=== PATIENT | male | born 1945 | race Caucasian/White ===

== ENCOUNTER 2016-09-02 12:45 | Emergency (ER) | payer MEDICARE ==
--- NOTE | 2016-09-02 13:05 | ER Document Report ---
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 horne at [facility]) Doesn 't know if it's infection, recurrence of the fast growing tumor or fluid collection. TRAVEL OUTSIDE OF THE [place] IN LAST 30 DAYS: No - Related Data Allergies/Adverse Reactions: codeine [Codeine] Adverse Reaction (Verified 09/02/16 13:03) Nausea Past Medical History - Past Medical History Cardiac Medical History: Reports: Hx Coronary Artery Disease Denies: Hx Heart Attack, Hx Hypertension Pulmonary Medical History: Denies: Hx Asthma, Hx Bronchitis, Hx COPD, Hx Pneumonia Neurological Medical History: Denies: Hx Cerebrovascular Accident, Hx Seizures Musculoskeltal Medical History: Denies Hx Arthritis Past Surgical History: Reports: Hx Abdominal Surgery - Immunizations Hx Diphtheria, Pertussis, Tetanus Vaccination: No Physical Exam - Vital signs Vitals: Temp Pulse Resp BP Pulse Ox 97.8 F 91 18 153/91 H 95 09/02/16 12:57 09/02/16 12:57 09/02/16 12:57 09/02/16 12:57 09/02/16 12:57 Course - Vital Signs Vital signs: Temp Pulse Resp BP Pulse Ox 97.8 F 91 18 153/91 H 95 09/02/16 12:57 09/02/16 12:57 09/02/16 12:57 09/02/16 12:57 09/02/16 12:57
[2016-09-02 13:44] LABS: ABSOLUTE EOSINOPHILS # (AUTO) 0.1 10^3/uL (0.0-0.6); ABSOLUTE LYMPHOCYTES (AUTO) 1.2 10^3/uL (0.5-4.7); ABSOLUTE MONOCYTES (AUTO) 0.4 10^3/uL (0.1-1.4); ABSOLUTE NEUT (AUTO) 3.8 10^3/uL (1.7-8.2); BASOPHILS % (AUTO) 0.6 % (0-2); EOSINOPHILS % (AUTO) 1.5 % (0-6); HEMATOCRIT 39.4 % (37.9-51.0); HEMOGLOBIN 13.3 g/dL (13.5-17.0); HGB HCT DIFFERENCE 0.5; LYMPHOCYTES % (AUTO) 21.2 % (13-45); MEAN CORPUSCULAR HEMOGLOBIN 28.7 pg (27.0-33.4); MEAN CORPUSCULAR HGB CONC 33.8 g/dL (32.0-36.0); MEAN CORPUSCULAR VOLUME 85 fl (80-97); RED BLOOD COUNT 4.64 10^6/uL (4.35-5.55); RED CELL DISTRIBUTION WIDTH 13.7 % (11.5-14.0); SEGMENTED NEUTROPHILS % (AUTO) 69.7 % (42-78); WHITE BLOOD COUNT 5.5 10^3/uL (4.0-10.5)
[2016-09-02 14:05] LABS: ALANINE AMINOTRANSFERASE 32 U/L (21-72); ALBUMIN 4.1 g/dL (3.5-5.0); ALKALINE PHOSPHATASE 95 U/L (38-126); ANION GAP 9 (5-19); ASPARTATE AMINO TRANSFERASE 26 U/L (17-59); BILIRUBIN,TOTAL 0.8 mg/dL (0.2-1.3); BLOOD UREA NITROGEN 17 mg/dL (7-20); CALCIUM 9.8 mg/dL (8.4-10.2); CARBON DIOXIDE 30 mmol/L (22-30); CHLORIDE 105 mmol/L (98-107); CREATININE RESULT 0.99 mg/dL (0.52-1.25); GLUCOSE 93 mg/dL (75-110); SODIUM 144.2 mmol/L (137-145); TOTAL PROTEIN 6.9 g/dL (6.3-8.2)
--- NOTE | 2016-09-02 15:06 | ER Document Report ---
ED General - General Chief Complaint: Jaw Pain Stated Complaint: LUMP ON LEFT CHEEK/POST SURGERY Mode of Arrival: Ambulatory Information source: Patient Notes: 71-year-old male who has had extensive surgery on the left side of his face anterior to his article presents with complaints of swelling. Patient notes swelling is increase her past 2-3 days denies any fevers or chills nausea vomiting or diarrhea. Patient notes it is tender to palpation TRAVEL OUTSIDE OF THE [place] IN LAST 30 DAYS: No - HPI Onset: Other - 2 three-day duration Onset/Duration: Worse Quality of pain: Achy Severity: Mild Pain Level: 1 Associated symptoms: Other Exacerbated by: Denies Relieved by: Denies Similar symptoms previously: No Recently seen / treated by doctor: No - Related Data Allergies/Adverse Reactions: codeine [Codeine] Adverse Reaction (Verified 09/02/16 13:03) Nausea Past Medical History - General Information source: Patient - Social History Smoking Status: Never Smoker Cigarette use (# per day): No Chew tobacco use (# tins/day): No Smoking Education Provided: No Frequency of alcohol use: None Drug Abuse: None Family History: Reviewed & Not Pertinent Patient has suicidal ideation: No Patient has homicidal ideation: No - Past Medical History Cardiac Medical History: Reports: Hx Coronary Artery Disease Denies: Hx Heart Attack, Hx Hypertension Pulmonary Medical History: Denies: Hx Asthma, Hx Bronchitis, Hx COPD, Hx Pneumonia Neurological Medical History: Denies: Hx Cerebrovascular Accident, Hx Seizures Renal/ Medical History: Denies: Hx Peritoneal Dialysis Musculoskeltal Medical History: Denies Hx Arthritis Past Surgical History: Reports: Hx Abdominal Surgery - Immunizations Hx Diphtheria, Pertussis, Tetanus Vaccination: No Hx Pneumococcal Vaccination: 06/01/12 Review of Systems - Review of Systems Notes: REVIEW OF SYSTEMS: CONSTITUTIONAL : Denies fever, chills, or sweats. Denies recent illness. EENT: Admits to facial swelling CARDIOVASCULAR: Denies chest pain. Denies palpitations or racing or irregular heart beat. Denies ankle edema. RESPIRATORY: Denies cough, cold, or chest congestion. Denies shortness of breath, difficulty breathing, or wheezing. GASTROINTESTINAL: Denies abdominal pain or distention. Denies nausea, vomiting , or diarrhea. Denies blood in vomitus, stools, or per rectum. Denies black, tarry stools. Denies constipation. GENITOURINARY: Denies difficulty urinating, painful urination, burning, frequency, blood in urine, or discharge. MUSCULOSKELETAL: Denies back or neck pain or stiffness. Denies joint pain or swelling. SKIN: Denies rash, lesions or sores. HEMATOLOGIC : Denies easy bruising or bleeding. LYMPHATIC: Denies swollen, enlarged glands. NEUROLOGICAL: Denies confusion or altered mental status. Denies passing out or loss of consciousness. Denies dizziness or lightheadedness. Denies headache. Denies weakness or paralysis or loss of use of either side. Denies problems with gait or speech. Denies sensory loss, numbness, or tingling. Denies seizures. PSYCHIATRIC: Denies anxiety or stress. Denies depression, suicidal ideation, or homicidal ideation. ALL OTHER SYSTEMS REVIEWED AND NEGATIVE. Dictation was performed using [employer] voice recognition software PHYSICAL EXAMINATION: GENERAL: Well-appearing, well-nourished and in no acute distress. HEAD: Left facial paralysis secondary to previous surgery EYES: Pupils equal round and reactive to light, extraocular movements intact, conjunctiva are normal. ENT: Nares patent, oropharynx clear without exudates. Moist mucous membranes. NECK: Normal range of motion, supple without lymphadenopathy LUNGS: Breath sounds clear to auscultation bilaterally and equal. No wheezes rales or rhonchi. HEART: Regular rate and rhythm without murmurs ABDOMEN: Soft, nontender, nondistended abdomen. No guarding, no rebound. No masses appreciated. Female : deferred Musculoskeletal: Normal range of motion, no pitting or edema. No cyanosis. NEUROLOGICAL: Left facial paralysis PSYCH: Normal mood, normal affect. SKIN: 2 x 3 cm circumscribed fluctuant area left posterior jaw Physical Exam - Vital signs Vitals: Temp Pulse Resp BP Pulse Ox 97.8 F 91 18 153/91 H 95 09/02/16 12:57 09/02/16 12:57 09/02/16 12:57 09/02/16 12:57 09/02/16 12:57 Course - Re-evaluation Re-evalutation: 09/02/16 15:24 Given the patient has no white count is afebrile and otherwise has no erythema in the area I do not believe this is infectious in nature however patient will be started on antibiotics and has been given follow with his own surgeon. CT does note a seroma which I believe this is Should return precautions have been provided to both patient and After performing a Medical Screening Examination, I estimate there is LOW risk for OPEN FRACTURE, COMPARTMENT SYNDROME, TENDON RUPTURE, ACUTE NEUROVASCULAR INJURY, or RETAINED FOREIGN BODY, thus I consider the discharge disposition reasonable. Also, there is no evidence or peritonitis, sepsis, or toxicity. The patient and I have discussed the diagnosis and risks, and we agree with discharging home with close follow-up with the understanding that symptoms and presentations can change. We also discussed returning to the Emergency Department immediately if new or worsening symptoms occur. We have discussed the symptoms which are most concerning (e.g., changing or worsening pain, fever , numbness, weakness, cool or painful digits) that necessitate immediate return. - Vital Signs Vital signs: Temp Pulse Resp BP Pulse Ox 97.8 F 91 18 153/91 H 95 09/02/16 12:57 09/02/16 12:57 09/02/16 12:57 09/02/16 12:57 09/02/16 12:57 - Laboratory Result Diagrams: 09/02/16 13:29 09/02/16 13:29 Laboratory results interpreted by me: 09/02/16 13:29 Hgb 13.3 L - Diagnostic Test Radiology reviewed: Image reviewed, Reports reviewed Discharge - Discharge Clinical Impression: Facial swelling Condition: Stable Disposition: HOME, SELF-CARE Instructions: Abscess ([facility]) Additional Instructions: You must see your surgeon on sunday or return immediately if there are fevers or any other concerns Prescriptions: Clindamycin HCl 300 mg PO Q6 #40 capsule Oxycodone HCl/Acetaminophen [Percocet 5-325 mg Tablet] 1 tab PO ASDIR PRN #25 tab PRN Reason: Referrals: CHASIDY DIAZ MD [Primary Care Provider] - Follow up as needed
[2016-09-02 15:26] VITALS: BP 149/91
== END 2016-09-02 15:22 | disposition home or self-care (01) ==
LOC: ER 12:45
DX: R22.0 Localized swelling, mass and lump, head (principal); R68.84 Jaw pain; I25.10 Atherosclerotic heart disease of native coronary artery without angina pectoris; Z88.6 Allergy status to analgesic agent
CPT/HCPCS: 36415; 70487; 80053; 85025; 99284

== ENCOUNTER 2016-11-22 05:26 | Inpatient (IN) | payer MEDICARE ==
--- NOTE | 2016-11-15 20:54 | EKG REPORT ---
SEVERITY:- NORMAL ECG - SINUS RHYTHM : Confirmed by: Lina Jackson MD 15-Nov-2016 20:53:35
[2016-11-16 11:24] LABS: ABSOLUTE EOSINOPHILS # (AUTO) 0.1 10^3/uL (0.0-0.6); ABSOLUTE LYMPHOCYTES (AUTO) 1.3 10^3/uL (0.5-4.7); ABSOLUTE MONOCYTES (AUTO) 0.4 10^3/uL (0.1-1.4); ABSOLUTE NEUT (AUTO) 2.7 10^3/uL (1.7-8.2); BASOPHILS % (AUTO) 0.8 % (0-2); EOSINOPHILS % (AUTO) 2.3 % (0-6); HEMATOCRIT 39.1 % (37.9-51.0); HEMOGLOBIN 13.3 g/dL (13.5-17.0); HGB HCT DIFFERENCE 0.8; LYMPHOCYTES % (AUTO) 28.5 % (13-45); MEAN CORPUSCULAR HEMOGLOBIN 28.9 pg (27.0-33.4); MEAN CORPUSCULAR VOLUME 85 fl (80-97); RED CELL DISTRIBUTION WIDTH 13.4 % (11.5-14.0); SEGMENTED NEUTROPHILS % (AUTO) 60.4 % (42-78); WHITE BLOOD COUNT 4.5 10^3/uL (4.0-10.5)
[2016-11-16 16:28] LABS: APPEARANCE,URINE CLEAR; BILIRUBIN,URINE NEGATIVE (NEGATIVE); GLUCOSE, URINE NEGATIVE (NEGATIVE); KETONES,URINE NEGATIVE (NEGATIVE); LEUKOCYTE ESTERASE,URINE NEGATIVE (NEGATIVE); NITRITE,URINE NEGATIVE (NEGATIVE); PROTEIN,URINE NEGATIVE (NEGATIVE); URINE SPECIFIC GRAVITY 1.028; UROBILINOGEN,URINE NEGATIVE mg/dL (<2.0)
[2016-11-16 16:54] LABS: CALCIUM 9.4 mg/dL (8.4-10.2); GLUCOSE 92 mg/dL (75-110)
[2016-11-16 16:55] LABS: ANION GAP 11 (5-19); BLOOD UREA NITROGEN 21 mg/dL (7-20); CARBON DIOXIDE 27 mmol/L (22-30); CHLORIDE 106 mmol/L (98-107); CREATININE RESULT 0.84 mg/dL (0.52-1.25); POTASSIUM 4.1 mmol/L (3.6-5.0); SODIUM 143.6 mmol/L (137-145)
[~2016-11-22 05:26] MED LIST: CEFAZOLIN 2 GM/D5W RTU 2 GM/50 ML RTUPB IV PRN; LACTATED RINGERS 1000 ML IV PRN; LIDOCAINE 0.5% INJ-PF (5 MG/ML) 50 ML SDV SUBCUT PRN
[2016-11-22] MEDS ORDERED: FENTANYL CITRATE INJ/PF 250 MCG/5 ML AMPULE ONE (06:55)
[2016-11-22] MEDS ORDERED: HYDROMORPHONE HCL INJ/PF 2 MG/ML AMPULE ONE (06:56)
[2016-11-22] MEDS ORDERED: PROPOFOL INJ 200 MG/20 ML VIAL IV ONE (06:56)
[2016-11-22] MEDS ORDERED: MIDAZOLAM 2 MG/2 ML INJ ONE (06:56)
[2016-11-22] MEDS ORDERED: FENTANYL CITRATE INJ/PF 100 MCG/2 ML AMPUL IV PRN ×3 (08:23)
[2016-11-22] MEDS ORDERED: PROMETHAZINE HCL INJ 25 MG/1 ML VIAL IV PRN ×2 (08:23)
[2016-11-22] MEDS ORDERED: MEPERIDINE HCL/PF INJ 25 MG/1 ML DISP.SYRIN IV PRN (08:23)
[2016-11-22] MEDS ORDERED: DIPHENHYDRAMINE HCL 50 MG/ML VIAL IV PRN (08:23)
[2016-11-22] MEDS ORDERED: MORPHINE SULFATE 10 MG/ML INJ IV PRN (08:23)
[2016-11-22] MEDS ORDERED: BACITRACIN INJ 50,000 UNIT VIAL ONE (08:37)
[2016-11-22] MEDS ORDERED: BUPIVACAINE INJ/PF LIPOSOME/PF 266 MG/20 ML SDV ONE (08:37)
[2016-11-22] MEDS ORDERED: METHOCARBAMOL INJ/PF 1000 MG/10 ML SDV IV PRN (09:53)
[2016-11-22] MEDS: FENTANYL CITRATE INJ/PF 100 MCG/2 ML AMPUL ONE ×2 (09:56→10:01)
[2016-11-22] MEDS ORDERED: IBUPROFEN 800 MG TABLET ONE (10:25)
--- NOTE | 2016-11-22 10:42 | OPERATIVE REPORT E ---
Operative Report NAME: JANEL HOYT : 1945 AGE: 71Y DATE OF SURGERY: 11/22/2016 ROOM: OR ATTENDING PHYSICIAN: BRANDON SEALS M.D. DECORATOR INSPECTOR: None. PREOPERATIVE DIAGNOSES: 1. Radiculitis. 2. Back pain. POSTOPERATIVE DIAGNOSES: 1. Chronic back pain. 2. Radiculitis. PROCEDURES: 1. Spinal cord stimulator placement. 2. Partial laminectomy of T10 and T11. 3. Testing of leads and generator placement and testing of generator. ESTIMATED BLOOD LOSS: 100 mL. INDICATIONS: Patient is a 71-year-old male who has failed conservative management as well as had a successful spinal cord stimulator trial, did well after the spinal cord stimulator trial. After discussion with the patient of the risks, indications, and alternatives, including the risk of infection and bleeding, damage to nerves or blood vessels, the risk of dural tear and spinal headaches, the risk of continued back pain, the risk of migration of the leads, any further surgery, infection, and bleeding. The patient understood all these risks and wished to proceed with surgical intervention. OPERATIVE TECHNIQUE: The patient was brought into the room, placed under anesthesia, received 2 g of Ancef within an hour of cut time, had SCDs and a warm blanket. Patient was placed in the prone position on the side table with Jg frame. Jg frame was turned up to open up the anterior space posteriorly. Under C-arm fluoroscopy, the skin is marked at T11 and T10 and T12. After completion of prepping and draping, having received 2 g of Ancef within an hour of cut time, a midline incision was carried down through the skin measuring approximately 1.5 inches. Dissection was carried down onto T11. A partial laminectomy was performed at T10 and T11 and the microscope was brought in. Under the microscope, a partial laminectomy was performed of T10 and T11. Ligamentum flavum was resected, dura was identified, and the paddle lead from the Nevro system is introduced. C-arm fluoroscopy in AP position used to verify passing of that lead. The lead passed all the way up to the top of T9 and extended up into the disk space at T8-T9, was in the midline. After that and proper verification of that, the wires attached to the lead had harness attached to it. Then, a towel clip was used to create a hole inside the remainder of the lamina and spinous process and a 0 Ethibond was passed through, tied around the harness, and locked into position and final tightened and locked down. Position was verified again with C-arm fluoroscopy. Then, the wound was irrigated with copious amounts of irrigation. Bipolar electrocautery was used to coagulate small little bleeders and then attention was paid to placement of the generator pocket on the right side through the patient's request in the flank and then sharp dissection was carried down in that area and then a pocket was created above the fascia and bleeders were coagulated with electrocautery, and then the wound was irrigated with a significant amount of bacitracin irrigation. After that, the tunneling device was then used to pass the wire from the laminectomy site all the way up to the generator site, and then the wound and laminectomy site was irrigated with a liter of bacitracin irrigation and then the fascia was reapproximated with 0 Vicryl, subcu with 2-0 Vicryl, and skin with subcutaneous 3-0 Monocryl closure. Then, the actual Nevro generator is placed into the pocket and connected to the wires and tested, found to have good contact, and then the subcu was reapproximated with 0 and 2-0 Vicryl and then a running subcuticular closure with 3-0 Monocryl. Wounds were dressed in benzoin, Steri-Strips, 4 x 4, and tape. Patient tolerated the procedure well. Patient was then brought to the supine position and extubated and brought to recovery room. Condition is stable. Disposition is to recovery room. DICTATING PHYSICIAN: BRANDON SEALS M.D. [id number] PHY#: [id number] ID: [id number] JOB#: [id number] ACCT: [id number] cc:BRANDON SEALS M.D. >
[2016-11-22] MEDS ORDERED: OXYCODONE HCL IR 5 MG TABLET ONE (10:53)
--- NOTE | 2016-11-22 10:53 | RADIOLOGY REPORT (SQ) ---
EXAM DESCRIPTION: NO CHG FLUORO; T SPINE AP/LAT COMPLETED DATE/TIME: 11/22/2016 10:09 am REASON FOR STUDY: SPINAL STIMULATOR ASSISTED WITH FLUORO IN OR M51.16 INTERVERTEBRAL DISC DISORDERS W RADICULOPATHY, LUMBAR COMPARISON: None. FLUOROSCOPY TIME: 0.3 minutes. 5 images saved to PACS. TECHNIQUE: Intra-operative images acquired during surgical procedure to evaluate progress. NUMBER OF IMAGES: 5 images. LIMITATIONS: None. FINDINGS: Images acquired during electrode placement. IMPRESSION: IMAGE(S) OBTAINED DURING PROCEDURE. COMMENT: Quality ID [id number]: Final reports for procedures using fluoroscopy that document radiation exp osure indices, or exposure time and number of fluorographic images (if radiation exposure indices are not available) Please consult full operative report of the attending physician for description of the procedure. TECHNICAL DOCUMENTATION: JOB ID: [id number] [employer]- All Rights Reserved
--- NOTE | 2016-11-22 10:53 | RADIOLOGY REPORT (SQ) ---
EXAM DESCRIPTION: NO CHG FLUORO; T SPINE AP/LAT COMPLETED DATE/TIME: 11/22/2016 10:09 am REASON FOR STUDY: SPINAL STIMULATOR ASSISTED WITH FLUORO IN OR M51.16 INTERVERTEBRAL DISC DISORDERS W RADICULOPATHY, LUMBAR COMPARISON: None. FLUOROSCOPY TIME: 0.3 minutes. 5 images saved to PACS. TECHNIQUE: Intra-operative images acquired during surgical procedure to evaluate progress. NUMBER OF IMAGES: 5 images. LIMITATIONS: None. FINDINGS: Images acquired during electrode placement. IMPRESSION: IMAGE(S) OBTAINED DURING PROCEDURE. COMMENT: Quality ID [id number]: Final reports for procedures using fluoroscopy that document radiation exp osure indices, or exposure time and number of fluorographic images (if radiation exposure indices are not available) Please consult full operative report of the attending physician for description of the procedure. TECHNICAL DOCUMENTATION: JOB ID: [id number] [employer]- All Rights Reserved
[2016-11-22 12:09] VITALS: BP 146/79
[2016-11-22] MEDS ORDERED: SUCCINYLCHOLINE CHLORIDE INJ 200 MG/10 ML VIAL ONE (13:27)
[2016-11-22] MEDS ORDERED: LIDOCAINE 2% INJ-PF (20 MG/ML) 10 ML AMPUL ONE (13:27)
[2016-11-22] MEDS ORDERED: ONDANSETRON HCL INJ/PF 4 MG/2 ML SDV ONE (13:27)
[2016-11-22] MEDS ORDERED: DEXAMETHASONE SOD PHOSPHATE INJ 4 MG/1 ML VIAL ONE (13:27)
== END 2016-11-22 12:10 | disposition home or self-care (01) | DRG 520 ==
LOC: INOR 05:26
PROVIDERS: ADMIT Orthopaedic Surgery; ATTEND Orthopaedic Surgery
PROC: 0JH70MZ Insertion of Stimulator Generator into Back Subcutaneous Tissue and Fascia, Open Approach (ICD-10-PCS; 2016-11-22)
PROC: 0PB Upper Bones, Excision (ICD-10-PCS; 2016-11-22)
PROC: BR17ZZZ Fluoroscopy of Thoracic Spine (ICD-10-PCS; 2016-11-22)
PROC: 00HU3MZ Insertion of Neurostimulator Lead into Spinal Canal, Percutaneous Approach (ICD-10-PCS; principal; 2016-11-22 07:30)
DX: M51.16 Intervertebral disc disorders with radiculopathy, lumbar region (principal); M51.36 Other intervertebral disc degeneration, lumbar region; M48.07 Spinal stenosis, lumbosacral region; G89.29 Other chronic pain; E78.5 Hyperlipidemia, unspecified; I25.10 Atherosclerotic heart disease of native coronary artery without angina pectoris; M19.90 Unspecified osteoarthritis, unspecified site; R26.9 Unspecified abnormalities of gait and mobility; Z87.891 Personal history of nicotine dependence; Z98.1 Arthrodesis status; Z88.6 Allergy status to analgesic agent
CPT/HCPCS: 36415; 620; 71020; 72070; 80048; 81001; 85025; 93005; 93010; C1822; C9290; J0330; J0690; J1100; J1170; J2250; J2405; J2704; J2800; J3010; J3490

== ENCOUNTER 2017-01-31 06:18 | Day surgery (SDC) | payer MEDICARE ==
[~2017-01-31 06:18] MED LIST changes: -CEFAZOLIN 2 GM/D5W RTU 2 GM/50 ML RTUPB IV PRN; +KETOROLAC TROMETHAMINE 0.45% 4 DROP/0.4 ML DROPERETTE OS PRN; -LACTATED RINGERS 1000 ML IV PRN; -LIDOCAINE 0.5% INJ-PF (5 MG/ML) 50 ML SDV SUBCUT PRN
[2017-01-31] MEDS ORDERED: FENTANYL CITRATE INJ/PF 100 MCG/2 ML AMPUL ONE (06:34)
[2017-01-31] MEDS ORDERED: MIDAZOLAM 2 MG/2 ML INJ ONE (06:34)
[2017-01-31] MEDS: BESIFLOXACIN HCL 0.6% OPH SUSP 5 ML BOTTLE OS PRN ×3 (06:54→07:56)
[2017-01-31] MEDS: TROPICAMIDE 1% OPH SOLN 3 ML OS PRN ×3 (06:54→07:14)
[2017-01-31] MEDS: CYCLOPENTOLATE 0.2%/PHENYLEPHRINE 1% OPH SOLN 2 ML OS PRN ×3 (06:54→07:14)
[2017-01-31] MEDS: LIDOCAINE 3.5% OPH GEL/PF 1 ML/TUBE OS PRN ×3 (06:55→07:35)
[2017-01-31] MEDS ORDERED: EPINEPHRINE INJ/PF 1 MG/1 ML AMPULE ONE (07:13)
[2017-01-31] MEDS ORDERED: CHONDR SU A NA/HYALUR INTRAOC KIT (SURGICARE) ONE (07:14)
[2017-01-31] MEDS ORDERED: LIDOCAINE 1% INJ-PF (10 MG/ML) 30 ML SDV ONE (07:14)
[2017-01-31] MEDS ORDERED: TOBRAMYCIN SULFATE/DEXAMETH OPH OINTMENT 3.5 GM ONE (07:14)
[2017-01-31] MEDS ORDERED: CHONDR SU A NA/HYALUR SOD 0.5 ML DISP.SYRIN ONE (07:15)
== END 2017-01-31 08:33 | disposition home or self-care (01) ==
LOC: SC 06:18
PROVIDERS: ATTEND Ophthalmology
PROC: 08RK3JZ Replacement of Left Lens with Synthetic Substitute, Percutaneous Approach (ICD-10-PCS; principal; 2017-01-31 07:30)
DX: H25.12 Age-related nuclear cataract, left eye (principal); H40.1131 Primary open-angle glaucoma, bilateral, mild stage; E78.00 Pure hypercholesterolemia, unspecified; G51.0 Bell's palsy; Z87.891 Personal history of nicotine dependence; Z79.899 Other long term (current) drug therapy; Z88.5 Allergy status to narcotic agent
CPT/HCPCS: 66984; C1783; V2630; J2250; J3490 ×4; A9270 ×2; J0171; J3010; 142

== ENCOUNTER 2017-02-14 08:03 | Day surgery (SDC) | payer MEDICARE ==
[~2017-02-14 08:03] MED LIST changes: +CHONDR SU A NA/HYALUR INTRAOC KIT (SURGICARE) ONE; +EPINEPHRINE INJ/PF 1 MG/1 ML AMPULE ONE; +KETOROLAC TROMETHAMINE 0.45% 4 DROP/0.4 ML DROPERETTE OD PRN; -KETOROLAC TROMETHAMINE 0.45% 4 DROP/0.4 ML DROPERETTE OS PRN; +LIDOCAINE 1% INJ-PF (10 MG/ML) 30 ML SDV ONE; +TOBRAMYCIN SULFATE/DEXAMETH OPH OINTMENT 3.5 GM ONE
[2017-02-14] MEDS: TROPICAMIDE 1% OPH SOLN 3 ML OD PRN ×3 (08:35→08:55)
[2017-02-14] MEDS: CYCLOPENTOLATE 0.2%/PHENYLEPHRINE 1% OPH SOLN 2 ML OD PRN ×3 (08:35→08:55)
[2017-02-14] MEDS: BESIFLOXACIN HCL 0.6% OPH SUSP 5 ML BOTTLE OD PRN ×3 (08:36→09:24)
[2017-02-14] MEDS: LIDOCAINE 3.5% OPH GEL/PF 1 ML/TUBE OD PRN ×3 (08:37→08:56)
[2017-02-14] MEDS ORDERED: MIDAZOLAM 2 MG/2 ML INJ ONE ×2 (08:50→09:06)
[2017-02-14] MEDS ORDERED: FENTANYL CITRATE INJ/PF 100 MCG/2 ML AMPUL ONE (08:50)
[2017-02-14] MEDS ORDERED: CHONDR SU A NA/HYALUR SOD 0.5 ML DISP.SYRIN ONE (09:21)
== END 2017-02-14 09:58 | disposition home or self-care (01) ==
LOC: SC 08:03
PROVIDERS: ATTEND Ophthalmology
PROC: 089230Z Drainage of Right Anterior Chamber with Drainage Device, Percutaneous Approach (ICD-10-PCS; 2017-02-14)
PROC: 08RJ3JZ Replacement of Right Lens with Synthetic Substitute, Percutaneous Approach (ICD-10-PCS; principal; 2017-02-14 09:00)
DX: H25.11 Age-related nuclear cataract, right eye (principal); H40.1111 Primary open-angle glaucoma, right eye, mild stage; Z96.1 Presence of intraocular lens; E78.00 Pure hypercholesterolemia, unspecified; G51.0 Bell's palsy; Z79.899 Other long term (current) drug therapy; Z88.5 Allergy status to narcotic agent; Z87.891 Personal history of nicotine dependence; Z79.82 Long term (current) use of aspirin
CPT/HCPCS: 0191T; 66984; 142; A9270 GY; C1783; J0171; J2250; J3010; J3490; V2630